=== PATIENT | female | born 1990 | race African-American/Black ===

== ENCOUNTER 2021-12-05 07:13 | Emergency (ER) | payer OTHER, SELFPAY ==
[2021-12-05 07:32] VITALS: BP 130/80; PULSE 67; RESP 16; TEMP 36.8; O2SAT 100
--- NOTE | 2021-12-05 07:37 | ED.DENTAL ---
HPI - Dental/Oral General Chief complaint: Dental/Oral Stated complaint: toothache Time Seen by Provider: 12/05/21 07:30 History of Present Illness HPI Narrative: Patient is a 31-year-old female who presents ER with dental pain. Tooth #17. No facial swelling. Ongoing for 2 weeks but worsening over the last 2 days. Worse with drinking cold water. No fevers chills or sweats. No difficulty swallowing. Related Data Allergies Allergy/AdvReac Type Severity Reaction Status Date / Time No Known Allergies Allergy Verified 12/05/21 07:35 Review of Systems Constitutional: Constitutional: Denies chills and Denies fever(s) ENT: Denies dysphagia, Denies nasal congestion and Denies sore throat Comments: Dental pain PMFSH Past Medical History Medical History (Updated 12/05/21 @ 07:41 by Jose David Huff MD) Healthy female adult Surgical History Surgical History (Updated 12/05/21 @ 07:40 by Jose David Huff MD) No pertinent past surgical history Exam Narrative: GENERAL: Well-appearing, well-nourished, and in no acute distress. HEAD: Normocephalic, atraumatic. ENT: Mucous membranes moist. The gumline is easily from tooth #17. No overt abscess. No facial swelling. NEURO: Alert and oriented x3. PSYCH: Normal mood and affect. Course Course Emergency Course: Suspect root exposure due to release of gumline from tooth. Likely developing infection given increased pain over the last 2 days. Recommend follow-up with dentist and will prescribe antibiotics. Vital Signs Vital signs: Vital Signs Temperature 98.2 F 12/05/21 07:32 Pulse Rate 67 12/05/21 07:32 Respiratory Rate 16 12/05/21 07:32 Blood Pressure 130/80 12/05/21 07:32 Pulse Oximetry 100 12/05/21 07:32 Oxygen Delivery Room Air 12/05/21 07:32 Temperature 98.2 F 12/05/21 07:32 Pulse Rate 67 12/05/21 07:32 Respiratory Rate 16 12/05/21 07:32 Blood Pressure 130/80 12/05/21 07:32 Pulse Oximetry 100 12/05/21 07:32 Oxygen Delivery Room Air 12/05/21 07:32 Discharge Plan Discharge Clinical Impression: Toothache Patient Disposition: Home, Self-Care Condition: Stable Instructions: Antibiotic Form, Toothache (ED) Additional Instructions: Return the ER if you cannot breathe, you cannot swallow, you have fever over 100.4 ?F, you have additional concerns Prescriptions: New amoxicillin-pot clavulanate 875-125 mg tablet 1 tablet PO Q12H Qty: 14 0RF Follow-up/Referrals: Dental Referral Line [Outside] - 1 Week PHYSICIAN NOT ON STAFF,NONSTAFF [Primary Care Provider] -
== END 2021-12-05 08:03 | disposition home or self-care (01) ==
LOC: ANHED 07:50
PROVIDERS: Emergency Provider Emergency Medicine
DX: K08.89 Other specified disorders of teeth and supporting structures (principal)
CPT/HCPCS: 99283

== ENCOUNTER 2021-12-25 22:47 | Emergency (ER) | payer OTHER, SELFPAY ==
[2021-12-25 22:52] VITALS: BP 149/100; PULSE 87; RESP 16; TEMP 36.1; O2SAT 100
--- NOTE | 2021-12-26 00:26 | ED.DENTAL ---
HPI - Dental/Oral General Chief complaint: Dental/Oral Stated complaint: toothache Time Seen by Provider: 12/26/21 00:08 Source: patient Mode of arrival: ambulatory Limitations: no limitations History of Present Illness HPI Narrative: This is a 31-year-old female that presents to the emergency department for dentalgia noted over the last couple of weeks. Reports she has an appointment to see her dentist later this week. The pain worsened tonight which prompted her to be seen. Denies fevers. MD Complaint: tooth pain Location: Tooth # (17) Related Data Allergies Allergy/AdvReac Type Severity Reaction Status Date / Time No Known Allergies Allergy Verified 12/25/21 22:52 Review of Systems Review of Systems: CONSTITUTIONAL: Denies fever ENT: Reports dentalgia All systems reviewed & are unremarkable except as noted in HPI and below PMFSH Past Medical History Medical History (Updated 12/26/21 @ 00:29 by Niki Ontiveros PA-C) Healthy female adult Surgical History Surgical History (Updated 12/05/21 @ 07:40 by Jose David Huff MD) No pertinent past surgical history Social History Social History (Updated 12/26/21 @ 00:28 by Niki Ontiveros PA-C) Smoking status: Never smoker Exam Narrative: GENERAL: Well-appearing, well-nourished, and in no acute distress. HEAD: Normocephalic, atraumatic. EYES: EOMI. ENT: Mucous membranes moist. Oropharynx without tonsillar hypertrophy exudate or other lesions. #17 tender to palpation, without surrounding erythema or fluctuance to suggest abscess NECK: Supple. No adenopathy or masses. CHEST: Clear to auscultation. No respiratory distress. No wheezes rales or rhonchi HEART: Regular rate and rhythm. No murmur heard. Normal peripheral pulses. EXTREMITIES: Normal range of motion. No edema. SKIN: Warm, dry, no rash. NEURO: No focal deficits. Alert and oriented x3. PSYCH: Normal mood and affect Course Vital Signs Vital signs: Vital Signs Temperature 96.9 F L 12/25/21 22:52 Pulse Rate 87 12/25/21 22:52 Respiratory Rate 16 12/25/21 22:52 Blood Pressure 149/100 H 12/25/21 22:52 Pulse Oximetry 100 12/25/21 22:52 Oxygen Delivery Room Air 12/25/21 22:52 Temperature 96.9 F L 12/25/21 22:52 Pulse Rate 87 12/25/21 22:52 Respiratory Rate 16 12/25/21 22:52 Blood Pressure 149/100 H 12/25/21 22:52 Pulse Oximetry 100 12/25/21 22:52 Oxygen Delivery Room Air 12/25/21 22:52 MDM - Dental/Oral MDM Narrative Medical decision making narrative: Patient presents to the emergency department for tooth ache ongoing over the last couple weeks. She is afebrile and nontoxic-appearing. No evidence for abscess on exam. Patient will be started on oral antibiotics and was instructed to follow-up with her dentist. She was given warnings to return to the ER Critical Care Time Critical Care Time Critical Care Time: No Discharge Plan Discharge Clinical Impression: Toothache Patient Disposition: Home, Self-Care Condition: Stable Instructions: Toothache (ED) Additional Instructions: Return to the Emergency Department if you experience fever >101, increasing swelling and redness of your tooth, or any other symptoms that are concerning to you Take antibiotic as prescribed. Tylenol or Ibuprofen as needed for pain. You can apply a dab of clove oil to a Qtip and apply to the tooth to help numb the area Follow up with your dentist Prescriptions: New amoxicillin-pot clavulanate 875-125 mg tablet 1 tablet PO Q12H 7 Days Qty: 14 0RF No Action amoxicillin-pot clavulanate 875-125 mg tablet 1 tablet PO Q12H Qty: 14 0RF Follow-up/Referrals: PHYSICIAN NOT ON STAFF,NONSTAFF [Primary Care Provider] -
[2021-12-26] MEDS: KETOROLAC 30 MG/ML VIAL (*BKC) IM (01:01)
== END 2021-12-26 01:14 | disposition home or self-care (01) ==
PROVIDERS: Emergency Provider Emergency Medicine
DX: K08.89 Other specified disorders of teeth and supporting structures (principal)
CPT/HCPCS: 96372; 99283; J1885

== ENCOUNTER 2022-12-31 12:37 | Emergency (ER) | payer OTHER, SELFPAY ==
[2022-12-31 12:41] VITALS: BP 127/79; PULSE 72; RESP 16; TEMP 37.1; O2SAT 100
[2022-12-31 12:48] VITALS: BP 118/83; PULSE 78; RESP 16; TEMP 36.4; O2SAT 100
--- NOTE | 2022-12-31 13:51 | ED.URI ---
HPI - URI/Sore Throat General Chief Complaint: Upper Respiratory Infection Stated Complaint: URI Time Seen by Provider: 12/31/22 13:50 Source: patient Mode of arrival: ambulatory History of Present Illness HPI Narrative: 52 years old -[place] female came to the emergency room by private car complaining of nasal congestion over 2 months, denies aggravating or relieving factors, been using [id number] medication without any improvement, nasal discharge is clear sometimes cloudy looking at the nasal bridge. Worse when she goes sleep at night. She denies any headache, fever, nausea, vomiting, history of sinusitis. Patient is healthy otherwise, does not smoke or drink or uses drugs. Related Data Allergies Allergy/AdvReac Type Severity Reaction Status Date / Time No Known Allergies Allergy Verified 12/25/21 22:52 Review of Systems Review of Systems: All systems reviewed & are unremarkable except as noted in HPI and below PMFSH Past Medical History Medical History Healthy female adult Surgical History Surgical History No pertinent past surgical history Social History Social History Smoking status: Never smoker Exam Narrative: General appearance: Well-developed, well-nourished Skin: Normal color Head: Normocephalic, nontraumatic Eyes: Clear conjunctiva ENT: Oropharynx normal, ears normal, nose normal, no frontal tenderness, no nasal tenderness, no nasal discharge. Neck: Supple, nontender Chest and respiratory: Airway patent, no respiratory distress, no accessory muscle use Heart: Regular rate/rhythm Abdomen: Soft, nontender, no organomegaly, quiet bowel sounds Vascular: Normal peripheral pulses, normal capillary refill. Musculoskeletal: Normal range of motion, nontender back Neurologic: Alert and oriented ?3, [employer] is normal as tested, no gross motor deficit Course Vital Signs Vital signs: Vital Signs Temperature 37.1 C 12/31/22 12:41 Pulse Rate 72 12/31/22 12:41 Respiratory Rate 16 12/31/22 12:41 Blood Pressure 127/79 12/31/22 12:41 Pulse Oximetry 100 12/31/22 12:41 Oxygen Delivery Room Air 12/31/22 12:41 Temperature 36.4 C L 12/31/22 12:48 Pulse Rate 78 12/31/22 12:48 Respiratory Rate 16 12/31/22 12:48 Blood Pressure 118/83 12/31/22 12:48 Pulse Oximetry 100 12/31/22 12:48 Oxygen Delivery Room Air 12/31/22 12:48 Critical Care Time Critical Care Time Critical Care Time: No Discharge Plan Discharge Clinical Impression: Sinusitis, acute Qualifiers: Sinusitis location: unspecified location Recurrence: not specified as recurrent Qualified Code(s): J01.90 - Acute sinusitis, unspecified Patient Disposition: Home, Self-Care Condition: Stable Instructions: Antibiotic Form, Sinusitis (ED) Additional Instructions: Return if symptoms are worsening , call your family physician/Dr. Bundy for appointment, take Tylenol as as needed for aches and pain, continue home medications. Prescriptions: New amoxicillin-pot clavulanate [Augmentin] 500-125 mg tablet 1 tablet PO Q8H Qty: 30 0RF prednisone 20 mg tablet 40 mg PO DAILY Qty: 10 0RF ipratropium bromide 42 mcg (0.06 %) spray,non-aerosol 2 spray intranasal QID 7 Days Qty: 15 0RF Rx Instructions: administer into each nostril No Action amoxicillin-pot clavulanate 875-125 mg tablet 1 tablet PO Q12H Qty: 14 0RF amoxicillin-pot clavulanate 875-125 mg tablet 1 tablet PO Q12H 7 Days Qty: 14 0RF Follow-up/Referrals: Angie Bundy
[2022-12-31 14:28] VITALS: BP 123/88; PULSE 70; RESP 15; TEMP 36.7; O2SAT 100
== END 2022-12-31 14:29 | disposition home or self-care (01) ==
LOC: ANHED 14:18
PROVIDERS: Emergency Provider Emergency Medicine
DX: J01.90 Acute sinusitis, unspecified (principal)
CPT/HCPCS: 99283

== ENCOUNTER 2023-03-21 11:49 | Emergency (ER) | payer OTHER, SELFPAY ==
[2023-03-21 11:55] VITALS: BP 114/78; PULSE 88; RESP 16; TEMP 36.8; O2SAT 100
--- NOTE | 2023-03-21 14:02 | ED.GENADULT ---
HPI - General Adult General Chief complaint: Upper Respiratory Infection Stated complaint: nasal congestion Time Seen by Provider: 03/21/23 12:46 History of Present Illness HPI narrative: Valerie Davis is a 32 y/o female who presents with reports of having nasal congestion/ pain for months. SHe states she kept thinking it would get better but it hasn't. Denies any fever/chills/chest pain/ sore throat/ SOB/ Related Data Allergies Allergy/AdvReac Type Severity Reaction Status Date / Time No Known Allergies Allergy Verified 12/25/21 22:52 Review of Systems Review of Systems: CONSTITUTIONAL: Denies fever, chills, or sweats. EYES: Denies visual changes, redness, or discharge. ENT: complains of rhinorrhea, congestion, denies sore throat, or otalgia. CARDIOVASCULAR: Denies chest pain, palpitations, or edema. RESPIRATORY: Denies cough or dyspnea. GASTROINTESTINAL: Denies abdominal pain, nausea, vomiting, or diarrhea. GENITOURINARY: Denies dysuria or hematuria. SKIN: Denies rash or itching. MUSCULOSKELETAL: Denies back pain, joint pain, or myalgia. NEUROLOGIC: Denies headache, numbness, dizziness, or weakness. PSYCHIATRIC: Denies anxiety or depression. [facility] Past Medical History Medical History Healthy female adult Surgical History Surgical History No pertinent past surgical history Social History Social History Smoking status: Never smoker Exam Narrative: GENERAL: Well-appearing, well-nourished, and in no acute distress. HEAD: Normocephalic, atraumatic. EYES: PERRLA and EOMI. ENT: Nares clear, no rhinorrhea or epistaxis. Mucous membranes moist. Oropharynx without tonsillar hypertrophy exudate or other lesions. Bilateral TMs pearly moore nonbulging NECK: Supple. No adenopathy or masses. No carotid bruits or JVD CHEST: Clear to auscultation. No respiratory distress. No wheezes rales or rhonchi HEART: Regular rate and rhythm. No murmur heard. Normal peripheral pulses. ABDOMEN: Soft, nontender, nondistended, normal active bowel sounds. EXTREMITIES: Normal range of motion. No edema. SKIN: Warm, dry, no rash. NEURO: No focal deficits. Alert and oriented x3. PSYCH: Normal mood and affect. Course Vital Signs Vital signs: Vital Signs Temperature 36.8 C 03/21/23 11:55 Pulse Rate 88 03/21/23 11:55 Respiratory Rate 16 03/21/23 11:55 Blood Pressure 114/78 03/21/23 11:55 Pulse Oximetry 100 03/21/23 11:55 Oxygen Delivery Room Air 03/21/23 11:55 Temperature 36.8 C 03/21/23 11:55 Pulse Rate 88 03/21/23 11:55 Respiratory Rate 16 03/21/23 11:55 Blood Pressure 114/78 03/21/23 11:55 Pulse Oximetry 100 03/21/23 11:55 Oxygen Delivery Room Air 03/21/23 11:55 Medical Decision Making MDM Narrative Medical decision making narrative: With pt having sinus pain/ congestion for months/ will start her on Augmenting BID for 10 days Also encouraged her to start zyrtec daily Close follow up with PCP Strict return precautions provided Patient verbalizes understanding and all questions answered. Medical Records Medical records reviewed: Yes I reviewed the external patient's medical records. Vital Signs Vital Signs: Vital Signs Temperature 36.8 C 03/21/23 11:55 Pulse Rate 88 03/21/23 11:55 Respiratory Rate 16 03/21/23 11:55 Blood Pressure 114/78 03/21/23 11:55 Pulse Oximetry 100 03/21/23 11:55 Oxygen Delivery Room Air 03/21/23 11:55 Temperature 36.8 C 03/21/23 11:55 Pulse Rate 88 03/21/23 11:55 Respiratory Rate 16 03/21/23 11:55 Blood Pressure 114/78 03/21/23 11:55 Pulse Oximetry 100 03/21/23 11:55 Oxygen Delivery Room Air 03/21/23 11:55 VItals reviewed by me. Discharge Plan Discharge Clinical Impression: Sinusitis Qualifiers: Sinusitis location: unspec
== END 2023-03-21 14:14 | disposition home or self-care (01) ==
PROVIDERS: Emergency Provider Nurse Practitioner Family
DX: J01.90 Acute sinusitis, unspecified (principal)
CPT/HCPCS: 99283